=== PATIENT | male | born 1940 | race Caucasian/White ===

== ENCOUNTER 2018-03-05 14:39 | Emergency (ER) | payer MEDICARE, BC | END 2018-03-05 17:14 | disposition home or self-care (01) | LOC: E/R 14:39 | DX: I82.401 Acute embolism and thrombosis of unspecified deep veins of right lower extremity (principal); I10 Essential (primary) hypertension; J45.909 Unspecified asthma, uncomplicated | CPT/HCPCS: 93971; 99284-25 ==

== ENCOUNTER → 2019-03-18 | Day surgery (SDC) | payer MEDICARE, BC ==
[~2019-03-18] MED LIST: FENTAnyl 50 MCG/ML VIAL; LIDOCAINE 4% SOLUTION 50 ML BTL; MIDAZOLAM 1 MG/ML 2 ML INJ
== END | disposition home or self-care (01) ==
LOC: GIL 12:43
DX: K44.9 Diaphragmatic hernia without obstruction or gangrene (principal); K31.811 Angiodysplasia of stomach and duodenum with bleeding; I10 Essential (primary) hypertension; Z86.718 Personal history of other venous thrombosis and embolism
CPT/HCPCS: 43235

== ENCOUNTER 2019-05-20 11:10 | Day surgery (SDC) | payer MEDICARE, BC ==
[2019-05-20] MEDS ORDERED: FENTAnyl 50 MCG/ML VIAL IV (13:00)
[2019-05-20] MEDS ORDERED: ONDANSETRON 4 MG INJ IV (13:00)
[2019-05-20] MEDS ORDERED: ACETAMINOPHEN 500 MG TAB PO (13:00)
[2019-05-20] MEDS ORDERED: ALBUTEROL 0.083% (NEB) 2.5 MG/3 ML AMP HHN (13:00)
[2019-05-20] MEDS ORDERED: PROPOFOL 40 ML (13:09)
[2019-05-20] MEDS ORDERED: PROPOFOL 20 ML (13:09)
== END 2019-05-20 15:02 | disposition home or self-care (01) ==
LOC: GIL 11:10
DX: K31.811 Angiodysplasia of stomach and duodenum with bleeding (principal); K44.9 Diaphragmatic hernia without obstruction or gangrene; D50.9 Iron deficiency anemia, unspecified; I10 Essential (primary) hypertension
CPT/HCPCS: 43255